=== PATIENT | female | born 1985 | race Caucasian/White ===

== ENCOUNTER 2020-09-28 11:01 | Outpatient (CLI) | payer OTHER | END 2020-09-28 23:59 | disposition home or self-care (01) | LOC: CFH 11:01 | PROVIDERS: ATTEND Orthopaedic Surgery | DX: S82.52XS Displaced fracture of medial malleolus of left tibia, sequela (principal); S82.852S Displaced trimalleolar fracture of left lower leg, sequela; M25.571 Pain in right ankle and joints of right foot; X58.XXXS Exposure to other specified factors, sequela ==

== ENCOUNTER 2020-10-16 08:14 | Outpatient (CLI) | payer OTHER ==
[2020-10-16] MEDS ORDERED: ENOX40SY4 SQ (08:34)
[2020-10-16] MEDS ORDERED: CITA40TA5 PO (08:34)
[2020-10-16] MEDS ORDERED: RIVA20TA PO (08:57)
[2020-10-16] MEDS ORDERED: ACET-1600 PO (08:57)
== END 2020-10-16 23:59 | disposition home or self-care (01) ==
LOC: STAR 08:14
PROVIDERS: ATTEND Orthopaedic Surgery
DX: Z20.822 Contact with and (suspected) exposure to COVID-19 (principal); M25.371 Other instability, right ankle
CPT/HCPCS: U0003; U0005

== ENCOUNTER 2020-10-20 07:13 | Inpatient (IN) | payer OTHER ==
[~2020-10-20] VITALS: Ht 168.9 cm; Wt 95.7 kg
[~2020-10-20 07:13] MED LIST: ACET-1600 PO; CITA40TA5 PO; ENOX40SY4 SQ; RIVA20TA PO
[2020-10-20] MEDS ORDERED: LACTATED RINGERS 1,000 ML IV SCH (08:00)
[2020-10-20] MEDS ORDERED: CHLORHEXIDINE 15 ML UDC PO ONE (08:00)
[2020-10-20] MEDS ORDERED: FENTANYL PF 100 MCG/2ML ONE ×4 (08:39→13:37)
[2020-10-20] MEDS ORDERED: MIDAZOLAM 1 MG/ML, 2ML ONE (08:39)
[2020-10-20 09:39] LABS: HCG UR SG 1.017 (1.003-1.030)
[2020-10-20] MEDS ORDERED: TRANEXAMIC ACID 100 MG/ML, 10ML ONE (11:04)
[2020-10-20] MEDS ORDERED: ROPIvacaine/PF 0.2%, 100ML 550 ML (check volume) INJ ONE (11:30)
[2020-10-20] MEDS ORDERED: OXYcodone 5 MG/5 ML ORAL.SOL UDC PO PRN (12:00)
[2020-10-20] MEDS ORDERED: LORazepam 2 MG/ML, 1ML IVPush PRN (12:00)
[2020-10-20] MEDS ORDERED: METHOCARBAMOL 1,000 MG in DEXTROSE 5% 100 ML IV PRN (12:00)
[2020-10-20] MEDS ORDERED: PROMETHAZINE 25 MG/ML, 1ML IVPush PRN (12:00)
[2020-10-20] MEDS ORDERED: PROMETHAZINE 25 MG SUPP PR PRN (12:00)
[2020-10-20] MEDS ORDERED: ACETAMINOPHEN 325 MG TABLET PO PRN ×2 (12:00→15:30)
[2020-10-20] MEDS ORDERED: HYDROmorphone 1 MG/ML, 1ML INJ IVPush PRN (12:00)
[2020-10-20] MEDS ORDERED: ONDANSETRON 2MG/ML, 2ML IVPush PRN (12:00)
[2020-10-20] MEDS ORDERED: VANCOMYCIN 1,000 MG ONE (12:18)
[2020-10-20] MEDS ORDERED: DEXAMETHASONE 4 MG/ML, 1ML ONE (13:16)
[2020-10-20] MEDS ORDERED: SUCCINYLCHOLINE 20 MG/ML, 10ML ONE (13:16)
[2020-10-20] MEDS ORDERED: ROCURONIUM 10MG/ML,5ML ONE (13:16)
[2020-10-20] MEDS ORDERED: NEOSTIGMINE 1 MG/ML, 10ML ONE (13:16)
[2020-10-20] MEDS ORDERED: ONDANSETRON 2MG/ML, 2ML ONE (13:16)
[2020-10-20] MEDS ORDERED: CEFAZOLIN 1,000 MG ONE (13:16)
[2020-10-20] MEDS ORDERED: PROPOFOL 10 MG/ML, 20ML ONE (13:16)
[2020-10-20] MEDS ORDERED: GLYCOPYRROLATE 0.2MG/1ML, 5ML ONE (13:16)
[2020-10-20] MEDS ORDERED: LORazepam 2 MG/ML, 1ML ONE (13:23)
[2020-10-20] MEDS: FENTANYL PF 100 MCG/2ML IV PRN ×3 (13:24→13:50)
[2020-10-20] MEDS ORDERED: HYDROmorphone 1 MG/ML, 1ML INJ IM PRN (15:30)
[2020-10-20] MEDS ORDERED: ONDANSETRON 2MG/ML, 2ML IV PRN (15:30)
[2020-10-20] MEDS: OXYcodone/APAP 5/325MG TABLET PO PRN ×2 (15:33→19:43)
[2020-10-20] MEDS: KETOROLAC 30 MG/1 ML IV SCH ×2 (15:34→23:23)
[2020-10-20] MEDS: ASPIRIN 81 MG TABLET CHEW PO SCH (19:43)
[2020-10-20 20:01] VITALS: BP 96/62
[2020-10-21 00:03] VITALS: BP 99/53
[2020-10-21 04:06] VITALS: BP 97/62
[2020-10-21 06:45] VITALS: BP 92/57
[2020-10-21] MEDS: ASPIRIN 81 MG TABLET CHEW PO SCH (07:50)
[2020-10-21] MEDS: KETOROLAC 30 MG/1 ML IV SCH (07:56)
[2020-10-21] MEDS ORDERED: CITALOPRAM 20 MG TABLET PO SCH (09:00)
[2020-10-21 12:35] VITALS: BP 98/62
== END 2020-10-21 16:23 | disposition home or self-care (01) | DRG 494 ==
LOC: OUT 07:13 → 4NE 14:51 → ORIP 16:13 → OUT 16:27 → 4NE 19:10 → DCLOUNGE 10-21 16:13
PROVIDERS: ADMIT Orthopaedic Surgery; ATTEND Orthopaedic Surgery
PROC: 0L8P0ZZ Division of Left Lower Leg Tendon, Open Approach (ICD-10-PCS; 2020-10-20)
PROC: 0SU Lower Joints, Supplement (ICD-10-PCS; 2020-10-20)
PROC: 0SGG04Z Fusion of Left Ankle Joint with Internal Fixation Device, Open Approach (ICD-10-PCS; 2020-10-20)
PROC: 0QPH04Z Removal of Internal Fixation Device from Left Tibia, Open Approach (ICD-10-PCS; 2020-10-20)
PROC: 3E0T3TZ Introduction of Destructive Agent into Peripheral Nerves and Plexi, Percutaneous Approach (ICD-10-PCS; 2020-10-20)
PROC: 0SSG04Z Reposition Left Ankle Joint with Internal Fixation Device, Open Approach (ICD-10-PCS; principal; 2020-10-20 09:00)
DX: S82.872A Displaced pilon fracture of left tibia, initial encounter for closed fracture (principal); M25.371 Other instability, right ankle; G89.29 Other chronic pain; M19.90 Unspecified osteoarthritis, unspecified site; M24.672 Ankylosis, left ankle; M65.9 Synovitis and tenosynovitis, unspecified; Y93.89 Activity, other specified; Y92.89 Other specified places as the place of occurrence of the external cause; Y99.8 Other external cause status
CPT/HCPCS: 76000; 81025; G0378; J0690; J1100; J1885; J2250; J2405; J2704; J2710; J2795; J3010; J3370; J0330; J2060; J7120